=== PATIENT | female | born 1975 | race Caucasian/White ===

== ENCOUNTER → 2019-04-30 16:33 | Outpatient (CLI) | payer MEDICARE, SELFPAY ==
[2019-04-30 17:35] LABS: Add Manual Diff / Slide Review NO; Basophils Absolute Auto 0 /uL (0-100); Basophils Percent Auto 0.5 % (0-2); Eosinophils Absolute Auto 100 /uL (0-450); Hematocrit 36.9 % (36-46); Hemoglobin 12.5 g/dL (12.0-16.0); Lymphocytes Absolute Auto 2300 /uL (1100-4500); Lymphocytes Percent Auto 28.4 % (25-40); Mean Corpuscular HGB Conc 33.8 % (30-36); Mean Corpuscular Hemoglobin 30.2 PG (26-34); Mean Corpuscular Volume 89.4 fL (80-100); Monocytes Absolute Auto 500 /uL (0-900); Monocytes Percent Auto 5.7 % (3-14); Neutrophils Absolute Auto 5100 /uL (1500-7000); Neutrophils Percent Auto 64.4 % (50-75); Platelet Count 207 X10^3/uL (150-400); Red Blood Cell Count 4.13 X10^6/uL (4.0-5.2); Red Cell Distribution Width 12.5 % (11.6-14.8); White Blood Cell Count 7.9 X10^3/uL (4.5-11.0)
[2019-04-30 17:56] LABS: Erythrocyte Sedimentation Rate 17 MM/HR (0-20)
[2019-04-30 18:08] LABS: Alanine Aminotransferase 11 IU/L (9-52); Albumin 3.9 g/dL (3.5-5.0); Albumin Globulin Ratio 1.3 (1.0-2.8); Alkaline Phosphatase 74 U/L (38-126); Aspartate Aminotransferase 23 IU/L (14-36); Bilirubin Total 0.6 mg/dL (0.2-1.3); Blood Urea Nitrogen 12 mg/dL (7-17); C-Reactive Protein Quant 0.6 mg/dL (<1.0); Calcium 8.6 mg/dL (8.4-10.2); Carbon Dioxide 27 mmol/L (22-32); Chloride 104 mmol/L (98-107); Cholesterol 211 mg/dL (140-199); Creatine Kinase 78 U/L (30-135); Estimated Glomerular Filt Rate > 60.0 mL/min (>60); Globulin 3.1 g/dL (1.7-4.1); Glucose 103 mg/dL (70-100); HDL Cholesterol 70 mg/dL (40-60); HEMOLYSIS < 15 (0-50); LDL Cholesterol Calculated 127 mg/dL (<100); Magnesium 1.9 mg/dL (1.6-2.3); Sodium 137 mmol/L (137-145); Triglycerides 69 mg/dL (35-150)
[2019-04-30 18:25] LABS: Vitamin D 25 Hydroxy (D3) 16.9 ng/mL (30.0-100.0)
[2019-04-30 18:37] LABS: TSH w/ Reflex to FT4 3.98 uIU/mL (0.47-4.68)
[2019-04-30 18:56] LABS: HIV 1 & 2 Ab/Ag 4th Gen Combo NEGATIVE (NEGATIVE)
[2019-05-02 23:56] LABS: RPR Screen Nonreactive (Nonreactive)
[2019-05-03 08:56] LABS: Hepatitis A Antibody IgM NONREACTIVE (NONREACTIVE); Hepatitis Acute Panel Interp 0.01; Hepatitis B Core Antibody IgM NONREACTIVE (NONREACTIVE); Hepatitis B Surface Antigen NONREACTIVE (NONREACTIVE); Hepatitis C Antibody NONREACTIVE
[2019-05-03 15:29] LABS: HLA B27 NEGATIVE (Negative)
[2019-05-03 15:43] LABS: HSV 1 IgM Screen Negative (Negative); HSV 2 IgM Screen Negative (Negative)
[2019-05-03 21:10] LABS: ANA Screen, IFA Positive (Negative)
[2019-05-04 11:45] LABS: CCP Antibody (IgG) < 16 Units (< 20)
== END ==
PROVIDERS: PCP Student in an Organized Health Care Education/Training Program; Visit Provider Student in an Organized Health Care Education/Training Program
DX: M13.0 Polyarthritis, unspecified (principal); D68.9 Coagulation defect, unspecified; K70.10 Alcoholic hepatitis without ascites; D75.89 Other specified diseases of blood and blood-forming organs; N18.3 Chronic kidney disease, stage 3 (moderate); R25.3 Fasciculation; F31.12 Bipolar disorder, current episode manic without psychotic features, moderate; E55.9 Vitamin D deficiency, unspecified; K70.30 Alcoholic cirrhosis of liver without ascites; Z13.220 Encounter for screening for lipoid disorders; Z72.51 High risk heterosexual behavior
CPT/HCPCS: 36415; 80053; 80061; 80074; 82306; 82550; 83735; 84443; 85025; 85651; 86038; 86140; 86200; 86592; 86695; 86696; 86812; 87389

== ENCOUNTER 2020-03-30 15:02 | Emergency (ER) | payer MEDICARE, MEDICAID, SELFPAY ==
[2020-03-30 15:16] VITALS: BP 131/62; PULSE 85; RESP 18; O2SAT 100; BMI 22.3
--- NOTE | 2020-03-30 16:20 | ED_ITS ---
HPI - Anxiety <JAYDE Godinez - Last Filed: 03/30/20 18:55> General Chief Complaint: Anxiety Stated Complaint: MENTAL HEALTH Time Seen by Provider: 03/30/20 15:35 Source: patient Mode of arrival: Ambulatory Limitations: no limitations History of Present Illness HPI narrative: The patient is a 44-year-old female nonsmoker with history of bipolar disorder, alcoholic hepatitis, and pneumonia who presents with a chief complaint of severe anxiety. She states she is having trouble adulting. She states that she does not have any thoughts of hurting herself or anybody else. She does not have a primary care provider, but chart review shows that she sees Dr. Clements, but mostly lives in [place]. She denies any fevers nausea vomiting or diarrhea. She states that she is not on any medications at this point time. She states she has seen Dr. Lechuga few times. Alcohol has been sober since fall 2015. The patient adamantly states that she does not want to be on benzodiazepines. She is teary upon interview. Related Data Previous Rx's Medication Instructions Recorded albuterol sulfate [Ventolin HFA] 0 INH SEE INSTRUCTIONS #1 ea 06/24/16 magnesium oxide 800 mg PO BID #180 tab 11/05/17 spironolactone 50 mg tablet 50 mg PO AMAC #90 tab 11/06/18 prazosin 1 mg capsule 1 mg PO QPM #30 cap 12/31/18 temazepam 7.5 mg capsule 7.5 mg PO BEDTIME PRN #10 cap 12/31/18 potassium chloride 20 mEq 20 meq PO BID #180 tab 05/04/19 tablet,extended release furosemide 80 mg tablet 80 mg PO DAILY #90 tab 09/28/19 hydroxyzine HCl 50 mg PO TID PRN #14 tab 03/30/20 Allergies Allergy/AdvReac Type Severity Reaction Status Date / Time No Known Drug Allergies Allergy Unknown Verified 04/30/19 16:18 [NO KNOWN DRUG ALLERGIES] Review of Systems <JAYDE Godinez - Last Filed: 03/30/20 18:55> Review of Systems Narrative: GENERAL: Denies chills, fatigue, malaise, fever, sweats. HEENT: Denies sinus pain, ear pain, sore throat, difficulty swallowing, d izziness. RESPIRATORY: Denies dyspnea, cough, wheezing, hemoptysis, sputum. CARDIOVASCULAR: Denies chest pain, palpitations, orthopnea, edema, GASTROINTESTINAL: Denies nausea, vomiting, abdominal pain, diarrhea, constipation, melena. : Denies dysuria, frequency, incontinence, hematuria, urinary retention. MUSCULOSKELETAL: denies weakness, joint pain, or bony pain SKIN: Denies rash, skin lesions, or other NEUROLOGIC: Denies weakness, headache, numbness, change in speech, confusion, seizures, incoordination. PSYCHIATRIC: See HPI 12 point review of systems is negative except for those stated above Patient History <JAYDE Godinez - Last Filed: 03/30/20 18:55> Medical History (Updated 03/30/20 @ 18:29 by JAYDE Godinez) Abnormal Pap smear of cervix (Resolved) Alcoholism (Chronic 2013) Asthma (Resolved) Cirrhosis of liver with ascites (Chronic 11/2015) Endometriosis (Resolved) GERD (gastroesophageal reflux disease) (Chronic) 2 (Resolved) Hepatic encephalopathy (Chronic) Hypothyroidism (Chronic) Kidney disease (Chronic 2015) Liver disease (Chronic) Surgical History (Updated 08/21/18 @ 11:15 by Chikis Madrigal) History of esophagogastroduodenoscopy (EGD) (Resolved 11/30/12) Status post dilation and curettage (Resolved) Status post hysterectomy (Resolved 2006) Family History (Updated 08/21/18 @ 11:19 by Chikis Madrigal) Father Lymphoma Mother Thyroid disease Endometrial cancer Social History Smoking Status: Never smoker Smoking Status: Never smoker Exam <JAYDE Godinez - Last Filed: 03/30/20 18:55> Narrative Exam Narrative: GENERAL: This is a well-nourished, well-developed patient, in no acute distress HEAD: Atraumatic. Normocephalic. No temporal or scalp tenderness. EYES: Pupils equal round and reactive. Extraocular motions intact. No scleral icterus. No injection or drainage. ENT: Nose without bleeding, purulent drainage or septal hematoma.. Airway patent. NECK: Trachea midline. No JVD or lymphadenopathy. Supple, nontender, no meningeal signs. CARDIOVASCULAR: Regular rate and rhythm without murmurs, gallops, or rubs. RESPIRATORY: No cough. No increased respiratory effort. No accessory muscle use. EXTREMITIES: No clubbing, cyanosis, or edema. No joint tenderness, effusion, or edema noted. Using all extremities equally. NEURO: AOx3. Interactive. Appropriate, teary at times. SKIN: No rash or erythema. Initial Vital Signs Initial Vital Signs: Vital Signs Pulse Rate 85 03/30/20 15:16 Respiratory Rate 18 03/30/20 15:16 Blood Pressure 131/62 03/30/20 15:16 Pulse Oximetry 100 03/30/20 15:16 <Aravind Newton DO - Last Filed: 03/31/20 11:05> Initial Vital Signs Initial Vital Signs: Vital Signs Pulse Rate 85 03/30/20 15:16 Respiratory Rate 18 03/30/20 15:16 Blood Pressure 131/62 03/30/20 15:16 Pulse Oximetry 100 03/30/20 15:16 Course <JAYDE Godinez - Last Filed: 03/30/20 18:55> Orders Ordered: Discontinued Medications Hydroxyzine Pamoate (Vistaril) 50 mg PO NOW ONE Stop: 03/30/20 17:53 Last Admin: 03/30/20 18:14 Dose: 50 mg Documented by: YENNI Consultations Consultation #1: Patient is speaking with CLINICAL SCIENCE LIAISON at this point time Time: 16:52 Vital Signs Vital signs: Vital Signs - 8 hr 03/30/20 15:16 Pulse Rate 85 Respiratory Rate 18 Blood Pressure 131/62 Pulse Oximetry 100 <Aravind Newton DO - Last Filed: 03/31/20 11:05> Orders Ordered: Discontinued Medications Hydroxyzine Pamoate (Vistaril) 50 mg PO NOW ONE Stop: 03/30/20 17:53 Last Admin: 03/30/20 18:14 Dose: 50 mg Documented by: YENNI Vital Signs Vital signs: Vital Signs - 8 hr 03/30/20 15:16 Pulse Rate 85 Respiratory Rate 18 Blood Pressure 131/62 Pulse Oximetry 100 MDM - Anxiety <JAYDE Godinez - Last Filed: 03/30/20 18:55> MDM Narrative Medical decision making narrative: The patient is a 44-year-old female who presents with a chief complaint of anxiety and ?having difficulty adulting.She adamantly denies any thoughts of hurting herself or anybody else. She spent about 80 minutes with our CLINICAL SCIENCE LIAISON, coming up with a plan to get help. She would l mckenzie to follow-up with Dr. lechuga again as well as get a primary care provider in [place]. She is safe to go home, adamantly denies any thoughts of hurting herself or anybody else. She did well with a dose of hydroxyzine, and requested a prescription which I gave her. I discussed at length the importance of following up with primary care provider and all the discussions as presented with CLINICAL SCIENCE LIAISON. Patient has no questions or concerns upon discharge and states understanding return precautions of any acute concerns as well as follow-up care. She would rates that she has no thoughts of hurting herself or anybody else. Discharge Plan Departure Patient Disposition: Home Clinical Impression: Anxiety Discharge Date/Time: 03/30/20 18:49 Instructions: Anxiety and Panic Attacks (Alternative Therapy), DI for Anxiety -- Adult Activity Restrictions/Additional Instructions: Thank you for trusting us with your care today. As discussed, please come back to the emergency department for any acute concerns. I sent a prescription of hydroxyzine to [facility], [place]. Do not combine this with Benadryl or any other allergy medicine. I have also included contact information for Dr. Lechuga so that you might be able to schedule an appointment with him. I also suggest following through with your housing plan as well as getting a primary care provider in this [place] area. I did include contact information [facility] human resource assistant, so that you can find a primary care provider in this area if you frequent the area. As discussed, please come back to the emergency department for any acute concerns Prescriptions: New hydroxyzine HCl 50 mg tablet 50 mg PO TID PRN (Reason: anxiety) Qty: 14 RF: 0 No Action albuterol sulfate [Ventolin HFA] 90 MCG/PUFF HFA aerosol inhaler 0 INH SEE INSTRUCTIONS Qty: 1 RF: 11 magnesium oxide 400 MG tablet 800 mg PO BID Qty: 180 RF: 3 spironolactone 50 mg tablet 50 mg PO AMAC Qty: 90 RF: 0 potassium chloride 20 mEq tablet extended release 20 meq PO BID Qty: 180 RF: 1 furosemide 80 mg tablet 80 mg PO DAILY Qty: 90 RF: 1 temazepam 7.5 mg capsule 7.5 mg PO BEDTIME PRN (Reason: sleep) Qty: 10 RF: 0 prazosin 1 mg capsule 1 mg PO QPM Qty: 30 RF: 0 Referrals: [facility] [Outside] German Garner MD [Primary Care Provider] - Marcos Lechuga MD [Physician] - <Aravind Newton DO - Last Filed: 03/31/20 11:05> Cosign ED Attending Cosignature Attestation: I was immediately available in the department for consultation. This documentation has been reviewed and I agree with assessment and plan. Supervised by Aravind Newton DO
--- NOTE | 2020-03-30 17:01 | PC.NURSE ---
Maurilio VILLATORO notified of patient's arrival. Completing chart review while room is getting ready for patient.
--- NOTE | 2020-03-30 18:12 | CM.SWNOTE ---
APPLICATION INTEGRATION ENGINEER assessment APPLICATION INTEGRATION ENGINEER - Call Center Consultant Assessment APPLICATION INTEGRATION ENGINEER - Call Center Consultant Assessment Start: 03/30/20 17:48 Freq: Status: Active Protocol: Document 03/30/20 17:48 ELEANOR (Rec: 03/30/20 18:12 ELEANOR [id number]) APPLICATION INTEGRATION ENGINEER/Call Center Consultant Assessment Time Spent with Patient Start date 03/30/20 Visit Start Time 16:15 End date 03/30/20 Visit End Time 17:35 Total time Care Management spent on 80 patient visit-in minutes Mental Health Screening Include Onset, Duration, Intensity Presenting Problem Patient presents to ED today with stated complaint of anxiety. Patient reports feeling scattered, unable to focus and complete tasks, and states that she can't adult . Precipitating Event(s) Patient was in a medically induced coma in 2016 and states that she has struggled with focus and memory since this time. Patient reports not having a place to live during the past 4 months. Patient reports that she wants an apartment, but can't decide and feels unable to make a decision. Patient reports that she has been staying in her car, at [employer] and at a friend's house for the past 4 months. Current Behavioral Health Provider(s) Patient reports she has seen Include Facility, Provider, Ph. # Dr. Ramos for psychiatry, but does not have a PCP, psychiatrist, or counselor set up in [place] where she currently lives. Psych. Hx Mental Health and Chemical Patient reports previous Dependency diagnosis of anxiety and ADHD. Patient reports she had a drinking problem which resulted in her being placed in a medically induced coma in 2016. Patient reports she has not consumed alcohol since this time and the thought of drinking is repulsive to her . Family Hx of Behavioral Abuse none reported. Psychiatric Hospitalizations (date(s)/ Patient reports going to a location) hospital for mental health in [place] roughly 4 months ago . It is unclear from narrative if patient was admitted to a psychiatric stay. Support System(s) Patient reports that she is living with a good friend and his son, and that this has been a really positive friendship for her. Patient reports a significant other, and states that there is tension in their relationship , that she has left before, but feels that there's more good than bad. Patient reports this relationship has lasted roughly 1 year. 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 Legal Concerns Legal Matters - Outstanding Issues none reported Mental Status Orientation (Person/Place/Time) Patient oriented x3 Affect Anxious, congruent with stated mood. Thought Content - Specify/Describe Patient did discuss some Obsessions, Delusions, Hallucinations paranoia and an obsession with trying to catch someone who has hacked her phone and that she believes is watching her. Patient reports that she starts to focus on a task, but then notices that her phone completes an action that makes her believe this individual is hacking into her phone. Patient reports she then will spend multiple hours thinking about and researching how that person hacked into her phone and states that she is trying to learn about this in order to catch this individual. Patient reports that she plans on giving all of her logs of IP addresses and E-mail addresses to the police and recognizes that she can no longer invest this much time into this pursuit. No hallucinations reported or observed during assessment. Thought Processes (Lsoovga-Xejvbvar-Hrxl Detailed, goal-directed- Tmwxogem-Jibzlcsc-Amooisqzyy- sometimes circumstantial Hspjlyhysbfwcp-Vslwpcz-Mgrpodndmteu- Thought Blocking) Speech (Csjjfj-Quoo-Rbwrkoy-Rapid-Soft- Slightly Rapid Loud-Pressured) Motor (Qvxjcp-Ebigwyzmz-Aeaf-Other) Normal for context Insight (Present-Partially Present- Present Impaired) Judgement (Intact-Impaired) Intact Impulse Control (Adequate-Impaired) Adequate Memory (Bhyxwmscf-Cdekcq-Fdehqg, Immediate and remote appear Impaired-Intact) intact. Patient reports difficulty with remembering things in the short-term, indicating that patient may be experiencing impairment with recent memory. Concentration (Intact-Impaired) Intact Attention (Intact-Impaired) Intact Behavior (Appropriate-Inappropriate) Appropriate Risk Assessment Suicidal Ideation (Plan) No Homicidal Ideation (Plan) No Comment Patient strongly denies any SI or HI. Intervention Intervention APPLICATION INTEGRATION ENGINEER met with patient. Patient discussed several life stressors including housing instability, memory and focus challenges, anxiety, paranoia and potential cyberstalking. Patient and APPLICATION INTEGRATION ENGINEER discuss the above in detail, and APPLICATION INTEGRATION ENGINEER explores patient's goals and strengths. 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 Patient and APPLICATION INTEGRATION ENGINEER discuss goals for patient to find, and commit to moving into an apartment, establish a PCP and counselor in the [place] area where she resides, and set up a telehealth appt. with Dr. Ramos, who she has previously met with. Plan RA Plan APPLICATION INTEGRATION ENGINEER staffs with Shantal Howell, patient's ED provider. At this time, patient is safe for discharge to home, and APPLICATION INTEGRATION ENGINEER asks provider to put Dr. Ramos's number in d/c notes, and a reminder to arrange an appointment with PCP. IRVING Sanches
[2020-03-30] MEDS: hydrOXYzine pamoate 25 MG CAPSULE 50 MG PO (18:14)
== END 2020-03-30 18:49 | disposition home or self-care (01) ==
PROVIDERS: Emergency Provider Nurse Practitioner Family; PCP Student in an Organized Health Care Education/Training Program
DX: F41.9 Anxiety disorder, unspecified (principal)
CPT/HCPCS: 99282; 99283